=== PATIENT | male | born 1990 | race Caucasian/White ===

== ENCOUNTER 2017-06-18 09:17 | Inpatient (IN) | payer SELFPAY ==
[~2017-06-18] VITALS: Ht 152.4 cm; Wt 58.3 kg
[2017-06-18] MEDS ORDERED: ONDANSETRON HCL 4MG/2ML VIAL IV STA (09:49)
[2017-06-18] MEDS ORDERED: MORPHINE SULFATE 4 MG/ML CPJ (NOT FOR IM USE) IV STA (09:49)
[2017-06-18 10:19] LABS: HEMATOCRIT. 31.9 % (42.0-52.0); HEMOGLOBIN. 11.1 g/dL (14.0-18.0); MEAN CORPUSCULAR HEMOGLOBIN 31.6 pg (28.0-32.0); MEAN CORPUSCULAR VOLUME 91.1 fL (80.0-94.0); MEAN PLATELET VOLUME 6.9 fl (7.4-10.4); PLATELET 127 x1000/uL (130-400); RED BLOOD CELL COUNT 3.51 mill/uL (4.7-6.1); RED CELL DISTRIBUTION WIDTH 13.6 % (11.6-14.6)
[2017-06-18 10:27] LABS: INR 1.8; PROTHROMBIN TIME 18.7 sec (9.4-11.6)
[2017-06-18 10:32] LABS: CARBON DIOXIDE 25 mEq/L (21-32); CHLORIDE 74 mEq/L (98-107)
[2017-06-18] MEDS ORDERED: SODIUM CHLORIDE 0.9% 1,000 ML IV ONE (10:51)
[2017-06-18] MEDS ORDERED: KCL 20MEQ/100ML PREMIX 100 ML IV ONE (11:00)
[2017-06-18] MEDS ORDERED: LEVOFLOXACIN 750MG PREMIX 150 ML IV ONE (11:00)
[2017-06-18] MEDS ORDERED: METRONIDAZOLE 500 MG PREMIX 100 ML IV ONE (11:00)
[2017-06-18] MEDS ORDERED: POTASSIUM CHLORIDE 20MEQ TABLET SR PO ONE (11:00)
[2017-06-18 11:35] LABS: PLATELET ESTIMATE SLIGHTLY DECREASED
[2017-06-18] MEDS ORDERED: POTASSIUM CHLORIDE INJ 20 MEQ in SODIUM CHLORIDE 0.9% 100 ML IV NR (12:45)
[2017-06-18] MEDS ORDERED: MAGNESIUM 2 G PREMIX 50 ML IV ONE (13:15)
[2017-06-18 17:30] VITALS: BP 117/84
[2017-06-18] MEDS ORDERED: MAGNESIUM/ALUMINUM HYDROXIDE/SIMETHICONE 30ML UDC PO PRN (19:45)
[2017-06-18] MEDS ORDERED: CLONIDINE 0.1MG TABLET PO PRN (19:45)
[2017-06-18] MEDS ORDERED: ACETAMINOPHEN 650MG SUPP PR PRN (19:45)
[2017-06-18] MEDS ORDERED: IPRATROPIUM/ALBUTEROL 0.5-3(2.5)MG/3ML NEB INH PRN (19:45)
[2017-06-18] MEDS ORDERED: NA PHOS,M-B/NA PHOS,DI-BA ENEMA 118ML PR PRN (19:45)
[2017-06-18] MEDS ORDERED: METOCLOPRAMIDE HCL 5MG TABLET PO PRN (19:45)
[2017-06-18] MEDS ORDERED: ENOXAPARIN 40MG/0.4ML SYR SUBCUT SCH (19:45)
[2017-06-18] MEDS ORDERED: GUAIFENESIN 200MG/10ML SUGAR FREE UDC PO PRN (19:45)
[2017-06-18] MEDS ORDERED: ACETAMINOPHEN 325MG TABLET PO PRN (19:45)
[2017-06-18] MEDS ORDERED: DIPHENHYDRAMINE 50MG/ML VIAL IV PRN (19:45)
[2017-06-18] MEDS ORDERED: ACETAMINOPHEN 650MG/20.3ML UDC GT PRN (19:45)
[2017-06-18] MEDS ORDERED: DOCUSATE SODIUM 100MG CAPSULE PO PRN (19:45)
[2017-06-18] MEDS ORDERED: LORAZEPAM 0.5MG TABLET PO PRN (19:45)
[2017-06-18] MEDS ORDERED: POTASSIUM CHLORIDE 20MEQ TABLET SR PO PRN (19:45)
[2017-06-18 20:00] VITALS: BP 121/86
[2017-06-18] MEDS ORDERED: SODIUM CHLORIDE 0.45% 1,000 ML IV SCH (20:00)
[2017-06-18 21:23] LABS: CHLORIDE 85 mEq/L (98-107)
[2017-06-18 21:31] LABS: CARBON DIOXIDE 27 mEq/L (21-32)
[2017-06-18] MEDS: THIAMINE HCL 100MG TABLET PO SCH (21:38)
[2017-06-18] MEDS: SODIUM CHLORIDE 0.9% INJ 3ML FLUSH IVF SCH (21:39)
[2017-06-18] MEDS: FAMOTIDINE 20MG TABLET PO SCH (21:39)
[2017-06-18] MEDS: CHLORDIAZEPOXIDE 25MG CAPSULE PO SCH (21:39)
[2017-06-18] MEDS: POTASSIUM CHLORIDE INJ 40 MEQ in SODIUM CHLORIDE 0.9% 1,000 ML IV SCH (22:22)
[2017-06-19] VITALS: BP 104/73
[2017-06-19] MEDS: ONDANSETRON HCL 4MG/2ML VIAL IV PRN (01:26)
[2017-06-19 02:19] LABS: CLARITY URINE CLOUDY (CLEAR); COLOR URINE DARK YELLOW (YELLOW); KETONES URINE 2+ (NEGATIVE); LEUKOCYTE ESTERASE URINE TRACE (NEGATIVE); NITRITE URINE POSITIVE (NEGATIVE); OCCULT BLOOD URINE NEGATIVE (NEGATIVE); PROTEIN URINE TRACE (NEGATIVE); SPECIFIC GRAVITY URINE 1.024 (1.005-1.030)
[2017-06-19 03:33] LABS: *AMPHETAMINES SCREEN URINE NEGATIVE (NEGATIVE); *BARBITURATES SCREEN URINE NEGATIVE (NEGATIVE); *BENZODIAZEPINES SCREEN URINE NEGATIVE (NEGATIVE); *COCAINE SCREEN URINE NEGATIVE (NEGATIVE); CANNABINOID URINE SCREEN NEGATIVE (NEGATIVE); METHADONE URINE SCREEN NEGATIVE (NEGATIVE); OPIATES URINE SCREEN PRESUMTIVE POSITIVE (NEGATIVE); PHENCYCLIDINE URINE SCREEN NEGATIVE (NEGATIVE)
[2017-06-19 04:00] VITALS: BP 113/81
[2017-06-19] MEDS: SODIUM CHLORIDE 0.9% INJ 3ML FLUSH IVF SCH ×3 (05:41→21:39)
[2017-06-19] MEDS: CHLORDIAZEPOXIDE 25MG CAPSULE PO SCH ×3 (05:41→21:39)
[2017-06-19 06:51] LABS: BASOPHILS % 0.2 % (0.0-2.0); EOSINOPHILS % 0.1 % (0.0-5.0); HEMATOCRIT. 26.8 % (42.0-52.0); HEMOGLOBIN. 9.6 g/dL (14.0-18.0); LYMPHOCYTES % 12.8 % (20.0-50.0); MEAN CORPUSCULAR HEMOGLOBIN 31.5 pg (28.0-32.0); MEAN CORPUSCULAR VOLUME 87.9 fL (80.0-94.0); MEAN PLATELET VOLUME 7.1 fl (7.4-10.4); MONOCYTES % 7.9 % (2.0-8.0); PLATELET 95 x1000/uL (130-400); RED BLOOD CELL COUNT 3.05 mill/uL (4.7-6.1); RED CELL DISTRIBUTION WIDTH 13.2 % (11.6-14.6)
[2017-06-19 07:51] LABS: CARBON DIOXIDE 29 mEq/L (21-32); CHLORIDE 87 mEq/L (98-107)
[2017-06-19 08:00] VITALS: BP 98/67
[2017-06-19 08:54] LABS: HDL CHOLESTEROL 10 mg/dL (40-59); LDL CHOLESTEROL 197 mg/dL (5-100); TROPONIN I < 0.02 ng/mL (0.00-0.04)
[2017-06-19] MEDS: THIAMINE HCL 100MG TABLET PO SCH (09:40)
[2017-06-19] MEDS: FOLIC ACID 1MG TABLET PO SCH (09:40)
[2017-06-19 10:57] LABS: PHOSPHORUS 0.4 mg/dL (2.5-4.9)
[2017-06-19 12:00] VITALS: BP 109/76
[2017-06-19] MEDS ORDERED: POTASSIUM PHOS,M-BASIC-D-BASIC 20 MMOL in DEXT 5% WATER 243.3333 ML IV NR (13:00)
[2017-06-19] MEDS: POTASSIUM CHLORIDE INJ 40 MEQ in SODIUM CHLORIDE 0.9% 1,000 ML IV SCH (13:27)
[2017-06-19 16:00] VITALS: BP 100/77
[2017-06-19] MEDS ORDERED: POTASSIUM CHLORIDE INJ 20 MEQ in DEXT 5%/0.9% NACL 1,000 ML IV SCH (16:00)
[2017-06-19] MEDS ORDERED: POTASSIUM CHLORIDE INJ 10 MEQ in DEXT 5%/0.9% NACL 1,000 ML IV SCH (16:00)
[2017-06-19] MEDS ORDERED: PHYTONADIONE 5MG TABLET PO NR (17:00)
[2017-06-19] MEDS ORDERED: POTASSIUM PHOS,M-BASIC-D-BASIC 15 MMOL in SODIUM CHLORIDE 0.9% 250 ML IV NR (17:00)
[2017-06-19] MEDS: DEXT 5%/0.9% NACL KCL 20MEQ/L 1,000 ML IV SCH (18:14)
[2017-06-19 20:00] VITALS: BP 105/82
[2017-06-19] MEDS: FAMOTIDINE 20MG TABLET PO SCH (21:39)
[2017-06-20] VITALS: BP 109/77
[2017-06-20 04:00] VITALS: BP 103/70
[2017-06-20] MEDS: SODIUM CHLORIDE 0.9% INJ 3ML FLUSH IVF SCH ×3 (05:37→21:39)
[2017-06-20 07:46] LABS: HEMATOCRIT. 27.8 % (42.0-52.0); HEMOGLOBIN. 9.9 g/dL (14.0-18.0); MEAN CORPUSCULAR VOLUME 90.3 fL (80.0-94.0); PLATELET 86 x1000/uL (130-400); RED BLOOD CELL COUNT 3.08 mill/uL (4.7-6.1); RED CELL DISTRIBUTION WIDTH 13.2 % (11.6-14.6)
[2017-06-20 08:00] VITALS: BP 104/74
[2017-06-20 08:03] LABS: CARBON DIOXIDE 26 mEq/L (21-32); CHLORIDE 95 mEq/L (98-107)
[2017-06-20 08:06] LABS: PHOSPHORUS 1.3 mg/dL (2.5-4.9)
[2017-06-20] MEDS: FOLIC ACID 1MG TABLET PO SCH (08:17)
[2017-06-20] MEDS: ONDANSETRON HCL 4MG/2ML VIAL IV PRN (08:17)
[2017-06-20] MEDS: CHLORDIAZEPOXIDE 25MG CAPSULE PO SCH ×2 (08:18→21:35)
[2017-06-20] MEDS: THIAMINE HCL 100MG TABLET PO SCH (08:18)
[2017-06-20] MEDS ORDERED: POTASSIUM PHOS M BASIC D BASIC IV SCH (11:00)
[2017-06-20] MEDS ORDERED: MAGNESIUM 1 G PREMIX 100 ML IV SCH (11:00)
[2017-06-20] MEDS ORDERED: SODIUM CHLORIDE 0.9% IV SCH (11:00)
[2017-06-20 12:00] VITALS: BP 104/78
[2017-06-20 13:27] LABS: PLATELET ESTIMATE DECREASED
[2017-06-20] MEDS: DEXT 5%/0.9% NACL KCL 20MEQ/L 1,000 ML IV SCH (13:51)
[2017-06-20 16:00] VITALS: BP 100/72
[2017-06-20 18:26] LABS: PHOSPHORUS 2.4 mg/dL (2.5-4.9)
[2017-06-20 20:00] VITALS: BP 99/75
[2017-06-20] MEDS: FAMOTIDINE 20MG TABLET PO SCH (21:35)
[2017-06-20] MEDS ORDERED: POTASSIUM PHOS,M-BASIC-D-BASIC 10 MMOL in DEXT 5% WATER 246.6667 ML IV NR (22:30)
[2017-06-21] VITALS: BP_SYST 1; BP_SYST 100; BP_DIAS 76
[2017-06-21 04:00] VITALS: BP 100/74
[2017-06-21] MEDS: SODIUM CHLORIDE 0.9% INJ 3ML FLUSH IVF SCH ×3 (05:46→21:35)
[2017-06-21 06:33] LABS: HEMATOCRIT. 25.4 % (42.0-52.0); HEMOGLOBIN. 8.8 g/dL (14.0-18.0); MEAN CORPUSCULAR HEMOGLOBIN 31.2 pg (28.0-32.0); MEAN CORPUSCULAR VOLUME 90.5 fL (80.0-94.0); MEAN PLATELET VOLUME 8.4 fl (7.4-10.4); PLATELET 86 x1000/uL (130-400); RED CELL DISTRIBUTION WIDTH 13.7 % (11.6-14.6)
[2017-06-21 07:18] LABS: CARBON DIOXIDE 26 mEq/L (21-32); CHLORIDE 96 mEq/L (98-107); PHOSPHORUS 1.7 mg/dL (2.5-4.9)
[2017-06-21 08:00] VITALS: BP 99/71
[2017-06-21] MEDS: CHLORDIAZEPOXIDE 25MG CAPSULE PO SCH ×2 (09:37→21:24)
[2017-06-21] MEDS: FOLIC ACID 1MG TABLET PO SCH (09:37)
[2017-06-21] MEDS: THIAMINE HCL 100MG TABLET PO SCH (09:37)
[2017-06-21 12:00] VITALS: BP_SYST 94; BP_SYST 95; BP_DIAS 71; BP_DIAS 75
[2017-06-21 12:18] LABS: PLATELET ESTIMATE DECREASED
[2017-06-21] MEDS ORDERED: DEXTROSE 50% WATER 50ML SYRINGE IV PRN (13:15)
[2017-06-21] MEDS: BLOOD SUGAR DIAGNOSTIC STRIP TEST SCH ×3 (13:16→21:26)
[2017-06-21] MEDS: INSULIN LISPRO 100 UNITS/ML SUBCUT SCH ×3 (13:43→21:30)
[2017-06-21] MEDS ORDERED: MAGNESIUM 4 G PREMIX 100 ML IV SCH (14:30)
[2017-06-21] MEDS ORDERED: POTASSIUM PHOS,M-BASIC-D-BASIC 30 MMOL in SODIUM CHLORIDE 0.9% 500 ML IV NR (16:00)
[2017-06-21 20:03] VITALS: BP 116/68
[2017-06-21] MEDS: FAMOTIDINE 20MG TABLET PO SCH (21:24)
[2017-06-21] MEDS: HYDROCODONE/ACETAMINOPHEN 5/325MG TABLET PO PRN (21:25)
[2017-06-21 23:47] VITALS: BP 90/68
[2017-06-22 03:48] VITALS: BP 104/65
[2017-06-22] MEDS: INSULIN LISPRO 100 UNITS/ML SUBCUT SCH ×4 (06:01→20:59)
[2017-06-22] MEDS: BLOOD SUGAR DIAGNOSTIC STRIP TEST SCH ×4 (06:01→20:56)
[2017-06-22] MEDS: SODIUM CHLORIDE 0.9% INJ 3ML FLUSH IVF SCH ×3 (06:07→21:18)
[2017-06-22 07:26] LABS: BASOPHILS % 0.9 % (0.0-2.0); EOSINOPHILS % 0.1 % (0.0-5.0); HEMATOCRIT. 23.7 % (42.0-52.0); HEMOGLOBIN. 8.1 g/dL (14.0-18.0); LYMPHOCYTES % 28.4 % (20.0-50.0); MEAN CORPUSCULAR HEMOGLOBIN 31.1 pg (28.0-32.0); MEAN PLATELET VOLUME 8.4 fl (7.4-10.4); MONOCYTES % 5.7 % (2.0-8.0); NEUTROPHILS % 64.9 % (40.0-76.0); PLATELET 81 x1000/uL (130-400); RED BLOOD CELL COUNT 2.61 mill/uL (4.7-6.1); RED CELL DISTRIBUTION WIDTH 13.6 % (11.6-14.6)
[2017-06-22 08:00] VITALS: BP 98/71
[2017-06-22] MEDS: FOLIC ACID 1MG TABLET PO SCH (08:20)
[2017-06-22] MEDS: THIAMINE HCL 100MG TABLET PO SCH (08:20)
[2017-06-22] MEDS: CHLORDIAZEPOXIDE 25MG CAPSULE PO SCH ×2 (08:20→20:55)
[2017-06-22 08:45] LABS: CARBON DIOXIDE 27 mEq/L (21-32); CHLORIDE 100 mEq/L (98-107); HDL CHOLESTEROL 21 mg/dL (40-59); LDL CHOLESTEROL 108 mg/dL (5-100); PHOSPHORUS 3.1 mg/dL (2.5-4.9)
[2017-06-22 12:00] VITALS: BP 107/77
[2017-06-22 16:00] VITALS: BP 96/71
[2017-06-22 20:00] VITALS: BP 103/73
[2017-06-22] MEDS: FAMOTIDINE 20MG TABLET PO SCH (20:56)
[2017-06-22] MEDS: HYDROCODONE/ACETAMINOPHEN 5/325MG TABLET PO PRN (23:13)
[2017-06-23] VITALS: BP 109/79
[2017-06-23 04:00] VITALS: BP 124/55
[2017-06-23] MEDS: SODIUM CHLORIDE 0.9% INJ 3ML FLUSH IVF SCH (05:46)
[2017-06-23 06:45] LABS: AMMONIA < 10 uMol/L (<32)
[2017-06-23] MEDS: BLOOD SUGAR DIAGNOSTIC STRIP TEST SCH ×2 (06:45→12:09)
[2017-06-23 06:55] LABS: INR 1.5; PROTHROMBIN TIME 15.8 sec (9.4-11.6)
[2017-06-23 07:03] LABS: BASOPHILS % 0.9 % (0.0-2.0); EOSINOPHILS % 0.1 % (0.0-5.0); HEMATOCRIT. 23.4 % (42.0-52.0); HEMOGLOBIN. 7.9 g/dL (14.0-18.0); LYMPHOCYTES % 20.5 % (20.0-50.0); MEAN CORPUSCULAR HEMOGLOBIN 31.1 pg (28.0-32.0); MEAN CORPUSCULAR VOLUME 92.4 fL (80.0-94.0); MEAN PLATELET VOLUME 8.6 fl (7.4-10.4); MONOCYTES % 5.6 % (2.0-8.0); NEUTROPHILS % 72.9 % (40.0-76.0); PLATELET 90 x1000/uL (130-400); RED BLOOD CELL COUNT 2.53 mill/uL (4.7-6.1)
[2017-06-23] MEDS: INSULIN LISPRO 100 UNITS/ML SUBCUT SCH ×2 (07:09→12:54)
[2017-06-23 07:10] LABS: CHLORIDE 99 mEq/L (98-107)
[2017-06-23 07:23] LABS: CARBON DIOXIDE 25 mEq/L (21-32); PREALBUMIN 3.5 mg/dL (20.0-40.0)
[2017-06-23] MEDS: CHLORDIAZEPOXIDE 25MG CAPSULE PO SCH (09:09)
[2017-06-23] MEDS: THIAMINE HCL 100MG TABLET PO SCH (09:11)
[2017-06-23] MEDS: HYDROCODONE/ACETAMINOPHEN 5/325MG TABLET PO PRN (09:11)
[2017-06-23] MEDS: FOLIC ACID 1MG TABLET PO SCH (09:11)
[2017-06-23 09:23] VITALS: BP 101/78
[2017-06-23 11:05] VITALS: BP 101/78
[2017-06-23 11:40] VITALS: BP 99/73
[2017-06-23] MEDS ORDERED: SODIUM PHOS,M-BASIC-D-BASIC 30 MM in DEXT 5% WATER 500 ML IV NR (12:00)
== END 2017-06-23 13:30 | disposition home or self-care (01) | DRG 425 ==
LOC: ER 09:21 → 5WST 10:56 → ENRESERV 14:19
PROVIDERS: ADMIT Family Medicine; ATTEND Family Medicine
DX: E87.1 Hypo-osmolality and hyponatremia (principal); D61.818 Other pancytopenia; E43 Unspecified severe protein-calorie malnutrition; D68.9 Coagulation defect, unspecified; D69.6 Thrombocytopenia, unspecified; K86.1 Other chronic pancreatitis; E83.42 Hypomagnesemia; K76.0 Fatty (change of) liver, not elsewhere classified; K70.9 Alcoholic liver disease, unspecified; E83.39 Other disorders of phosphorus metabolism; E11.9 Type 2 diabetes mellitus without complications; E78.1 Pure hyperglyceridemia; E78.5 Hyperlipidemia, unspecified; E87.6 Hypokalemia; R79.89 Other specified abnormal findings of blood chemistry; F10.20 Alcohol dependence, uncomplicated; J44.9 Chronic obstructive pulmonary disease, unspecified; Z59.0 Homelessness; Z83.3 Family history of diabetes mellitus; Z68.25 Body mass index [BMI] 25.0-25.9, adult
CPT/HCPCS: 36415; 74176; 80048; 80053; 80061; 80305; 81001; 82140; 82533; 82570; 82962; 83690; 83735; 83935; 84100; 84134; 84300; 84443; 84484; 85025; 85610; 96365; 96367; 96375; 97116; 97162; 99285; G0482; J1815; J1956; J2270; J2405; J3475; J3480; J3490; J7030; J7040; J7042; J7050; J7060; J7620

== ENCOUNTER 2017-06-30 17:03 | Emergency (ER) | payer MEDICAID ==
[~2017-06-30] VITALS: Ht 170.2 cm; Wt 81.0 kg
[2017-07-01] MEDS ORDERED: ONDANSETRON HCL 4MG/2ML VIAL IV STA (02:29)
[2017-07-01] MEDS ORDERED: MORPHINE SULFATE 4 MG/ML CPJ (NOT FOR IM USE) IV STA (02:29)
[2017-07-01] MEDS ORDERED: VANCOMYCIN 1 G PREMIX 200 ML IV ONE (02:30)
[2017-07-01] MEDS ORDERED: PIPERACILLIN/TAZ 3.375G PREMIX 50 ML IV ONE (02:30)
[2017-07-01] MEDS ORDERED: SODIUM CHLORIDE 0.9% 1000ML BAG (SEPSIS BOLUS) IV ONE (02:30)
[2017-07-01 03:26] LABS: EOSINOPHILS % 0.1 % (0.0-5.0); HEMATOCRIT. 25.8 % (42.0-52.0); HEMOGLOBIN. 8.7 g/dL (14.0-18.0); LYMPHOCYTES % 22.4 % (20.0-50.0); MEAN CORPUSCULAR HEMOGLOBIN 30.5 pg (28.0-32.0); MEAN CORPUSCULAR VOLUME 90.9 fL (80.0-94.0); MEAN PLATELET VOLUME 7.6 fl (7.4-10.4); MONOCYTES % 6.9 % (2.0-8.0); NEUTROPHILS % 69.6 % (40.0-76.0); PLATELET 198 x1000/uL (130-400); RED BLOOD CELL COUNT 2.84 mill/uL (4.7-6.1); RED CELL DISTRIBUTION WIDTH 15.8 % (11.6-14.6)
[2017-07-01 03:32] LABS: CLARITY URINE CLEAR (CLEAR); COLOR URINE DARK YELLOW (YELLOW); KETONES URINE NEGATIVE (NEGATIVE); LEUKOCYTE ESTERASE URINE NEGATIVE (NEGATIVE); NITRITE URINE NEGATIVE (NEGATIVE); OCCULT BLOOD URINE NEGATIVE (NEGATIVE); PH URINE 7.5 (4.5-8.0); PROTEIN URINE NEGATIVE (NEGATIVE); SPECIFIC GRAVITY URINE 1.015 (1.005-1.030)
[2017-07-01 03:39] LABS: AMMONIA < 25 uMol/L (<32)
[2017-07-01 03:42] LABS: INR 1.3; PROTHROMBIN TIME 13.5 sec (9.4-11.6)
[2017-07-01 03:43] LABS: CARBON DIOXIDE 29 mEq/L (21-32); CHLORIDE 103 mEq/L (98-107); ETHANOL BLOOD 14 mg/dL
[2017-07-01 04:23] LABS: *AMPHETAMINES SCREEN URINE NEGATIVE (NEGATIVE); *BARBITURATES SCREEN URINE NEGATIVE (NEGATIVE); *BENZODIAZEPINES SCREEN URINE PRESUMTIVE POSITIVE (NEGATIVE); *COCAINE SCREEN URINE NEGATIVE (NEGATIVE); CANNABINOID URINE SCREEN NEGATIVE (NEGATIVE); METHADONE URINE SCREEN NEGATIVE (NEGATIVE); OPIATES URINE SCREEN NEGATIVE (NEGATIVE); PHENCYCLIDINE URINE SCREEN NEGATIVE (NEGATIVE)
[2017-07-01] MEDS ORDERED: SODIUM CHLORIDE 0.9% 1,000 ML IV SCH (05:50)
[2017-07-01] MEDS ORDERED: GUAIFENESIN 200MG/10ML SUGAR FREE UDC PO PRN (09:45)
[2017-07-01] MEDS ORDERED: NA PHOS,M-B/NA PHOS,DI-BA ENEMA 118ML PR PRN (09:45)
[2017-07-01] MEDS ORDERED: ACETAMINOPHEN 325MG TABLET PO PRN (09:45)
[2017-07-01] MEDS ORDERED: TRAMADOL 50MG TABLET PO PRN ×2 (09:45→13:30)
[2017-07-01] MEDS ORDERED: DOCUSATE SODIUM 100MG CAPSULE PO PRN (09:45)
[2017-07-01] MEDS ORDERED: MAGNESIUM/ALUMINUM HYDROXIDE/SIMETHICONE 30ML UDC PO PRN (09:45)
[2017-07-01] MEDS ORDERED: ZOLPIDEM TARTRATE 5MG TABLET PO PRN ×2 (09:45→13:30)
[2017-07-01] MEDS ORDERED: ONDANSETRON HCL 4MG/2ML VIAL IV PRN (09:45)
[2017-07-01] MEDS ORDERED: KETOROLAC 15MG/ML VIAL IV PRN ×2 (09:45→13:30)
[2017-07-01] MEDS ORDERED: NITROGLYCERIN 0.4MG TABLET SL SL PRN ×2 (09:45→13:30)
[2017-07-01] MEDS ORDERED: IPRATROPIUM/ALBUTEROL 0.5-3(2.5)MG/3ML NEB INH PRN (09:45)
[2017-07-01] MEDS ORDERED: DIPHENHYDRAMINE 50MG/ML VIAL IV PRN (09:45)
[2017-07-01] MEDS ORDERED: CLONIDINE 0.1MG TABLET PO PRN (09:45)
[2017-07-01 13:18] VITALS: BP 117/78
[2017-07-01] MEDS ORDERED: FAMOTIDINE 20MG/2ML VIAL IV SCH ×2 (21:00→21:15)
[2017-07-01] MEDS ORDERED: SPIRONOLACTONE 25MG TABLET PO SCH ×2 (21:00→21:15)
[2017-07-01] MEDS ORDERED: FUROSEMIDE 40MG/4ML VIAL IVP SCH ×2 (21:00→21:15)
== END 2017-07-01 13:21 | disposition home or self-care (01) ==
LOC: ER 17:55 → CANBEDREQ 07-01 12:35 → ER 07-01 13:21
DX: R18.8 Other ascites (principal); M79.605 Pain in left leg; M79.89 Other specified soft tissue disorders; F17.200 Nicotine dependence, unspecified, uncomplicated
CPT/HCPCS: 36415; 71045; 76700; 80053; 80305; 81003; 82140; 82962; 83036; 83605; 83690; 83880; 85025; 85610; 86850; 86900; 86901; 87040; 87086; 87804; 93005; 93971; 96361; 96374; 96375; 99285; G0482; J2270; J2405; J2543; J7030; J7040; Z7610